=== PATIENT | male | born 1990 | race Caucasian/White ===

== ENCOUNTER 2018-05-11 04:40 | Emergency (ER) | payer MEDICAID ==
[~2018-05-11] VITALS: Ht 175.3 cm; Wt 82.0 kg
[2018-05-11] MEDS ORDERED: LORAZEPAM 1MG TABLET PO ONE (07:30)
[2018-05-11 09:15] LABS: BASOPHILS % 1.2 % (0.0-2.0); HEMATOCRIT. 42.2 % (42.0-52.0); LYMPHOCYTES % 11.2 % (20.0-50.0); MEAN CORPUSCULAR HEMOGLOBIN 30.9 pg (28.0-32.0); MEAN CORPUSCULAR VOLUME 93.3 fL (80.0-94.0); MEAN PLATELET VOLUME 8.7 fl (7.4-10.4); MONOCYTES % 6.5 % (2.0-8.0); NEUTROPHILS % 81.1 % (40.0-76.0); PLATELET 270 x1000/uL (130-400); RED BLOOD CELL COUNT 4.53 mill/uL (4.7-6.1); RED CELL DISTRIBUTION WIDTH 13.2 % (11.6-14.6)
[2018-05-11 09:23] LABS: INR 1.1; PARTIAL THROMBOPLASTIN TIME 31.7 sec (23.4-31.0); PROTHROMBIN TIME 11.4 sec (9.1-11.1)
[2018-05-11 09:59] LABS: CHLORIDE 98 mEq/L (98-107)
[2018-05-11 10:03] LABS: ETHANOL BLOOD < 10 mg/dL
[2018-05-11 12:32] VITALS: BP 105/54
[2018-05-11] MEDS ORDERED: TETANUS, DIPHTHERIA, PERTUSSIS VAC/PF 0.5ML (>7YR OLD) IM ONE (13:15)
== END 2018-05-11 13:34 | disposition home or self-care (01) ==
LOC: ER 05:04
DX: F15.129 Other stimulant abuse with intoxication, unspecified (principal); F14.10 Cocaine abuse, uncomplicated; M79.1 Myalgia
CPT/HCPCS: 36415; 70450; 80053; 80307; 80329; 85025; 85610; 85730; 90471; 90715; 99285; G0482